=== PATIENT | male | born 1985 | race Caucasian/White ===

== ENCOUNTER 2016-10-20 21:17 | Emergency (ER) | payer OTHER ==
[2016-10-20 21:38] VITALS: BP 136/92; PULSE 72; RESP 16; TEMP 97.7; O2SAT 97
--- NOTE | 2016-10-20 21:39 | UCPHY ---
H & P Time Seen by Provider: 10/20/16 21:31 Patient Type: New HPI/ROS: This patient presents with chief complaint of Achilles tendon injury which occurred while playing basketball short while prior to arrival. He felt a distinct pop and felt like somebody stepped on the back of his ankle. Walking is quite painful and difficult. He denies any motor or sensory dysfunction. Physical Exam: This is a well-developed well-nourished male who is in no acute distress. He is alert, appropriate lucid and cooperative. Examination of the left foot and ankle reveals a palpable defect in the Achilles tendon. Squeezing the calf does not cause plantar flexion. Skin is normal and intact. There is no deformity. CMS is intact. Allergies/Adverse Reactions: No Known Allergies Allergy (Unverified 10/20/16 21:30) Home Medications: Medication Instructions Recorded Babakir 10/20/16 Symbicort 160-4.5 Mcg Inh (*) 10/20/16 Medical Decision Making ED Course/Re-evaluation: A posterior splint was applied and he was given crutches advised follow up with his orthopedist as soon as possible. Differential Diagnosis: This patient has an obvious rupture of his Achilles tendon which does not require imaging at this time. Departure - Departure Disposition: Home, Routine, Self-Care Clinical Impression: Ruptured, tendon, Achilles Qualifiers: Encounter type: initial encounter Laterality: left Qualifier Code: (S86.012A) Strain of left Achilles tendon, initial encounter Condition: Good Instructions: Achilles Tendon Rupture (ED), Splint Care (ED), Crutch Instructions (ED) Additional Instructions: You should call your orthopedist tomorrow and arrange for follow-up. This injury will require surgery. Do not bear weight and use crutches. Apply ice to the area of injury for 20 minutes every 2 hours for 3 days following your injury. After 3 days (72 hours) it is safe to apply heat frequently throughout the day and I would recommend you're doing so. However if ice feels better it is okay to do this. Elevate the area of the injury as much as possible for the next 2 or 3 days or longer if you have a serious injury. If you have been told that it is safe to use the injured extremity do so in a limited fashion for the first 2-3 days. Afterwards left pain be your guide. Adult Pain & Fever Control: We recommend Acetaminophen (Tylenol) and Ibuprofen (Motrin, Advil) for pain and fever control. When fever is high or pain severe, both drugs can be used at the same time, but at different intervals. Please note the time differences. Your dose is: Acetaminophen [650]mg every 4 to 6 hours ibuprofen [600]mg every [6] hours with food OR naproxen Sodium (Aleve) [440]mg every 12 hours. Note: do not take Acetaminophen with Hydrocodone (Vicodin, Lortab) or Oxycodone (Percocet). These medications also contain Acetaminophen. No more than 3000 mg of Acetaminophen should be taken in 24 hours (for an adult) . The maximal dose of ibuprofen that it is safe in a 24-hour period is 2400 mg. You may take 400 mg every 4 hours, 600 mg every 6 hours or 800 mg every 8 hours safely. - PQRS PQRS Measurement: Not applicable
[2016-10-20] MEDS ORDERED: HYDROCOD/APAP 5/325 PREPACK#6 BTL TAKEHOME ONE (22:03)
== END 2016-10-20 21:59 | disposition home or self-care (01) ==
LOC: CED 21:17
DX: S86.012A Strain of left Achilles tendon, initial encounter (principal); Y93.67 Activity, basketball
CPT/HCPCS: 99203-PO; G0463-PO